=== PATIENT | male | born 1965 ===

== ENCOUNTER → 2017-03-05 | Day surgery (SDC) | payer OTHER ==
[2017-02-26 10:46] VITALS: Ht 165.1 cm; Wt 76.4 kg
[~2017-03-05] VITALS: Ht 165.1 cm; Wt 76.4 kg
[~2017-03-05] MED LIST: ATROPINE SULFATE 0.1 MG/ML 5ML SYR IV PRN; CEFAZOLIN 1000MG/55 ML D5W IV SCH; CEFAZOLIN SOD 1000MG/55 ML D5W IV SCH; DEXAMETHASONE SOD INJ 4 MG/ML VIAL ONE; EpHEDrine SULFATE INJ 50 MG/ML AMP IV PRN; EpINEphrine HCL INJ 1 MG/ML 5ML SYRINGE ONE; EpINEphrine INJ 1MG/ML AMP 1 MG/ML AMP ONE; FENTANYL CITRATE INJ 50 MCG/1 ML 2 ML VIAL ONE; HYDROmorphone INJ 1 MG/ML SYR IV PRN; KETO10TA PO; KETOROLAC TROMETHAMINE 30 MG/ML VIAL ONE; LACTATED RINGER'S 1000ML 1,000 ML IV SCH; LIDOCAINE HCL 2% 2 ML VIAL (20MG/ML) ONE; MIDAZOLAM HCL 1 MG/ML 2ML VIAL ONE; ONDANSETRON INJ 2 MG/ML 2 ML VIAL IV PRN; ONDANSETRON INJ 2 MG/ML 2 ML VIAL ONE; OXYC-57 PO; OXYCODONE/ACETAMINOPHEN 5-325 TAB PO PRN; PROPOFOL IV EMULSION 10 MG/ML 20 ML VIAL IV ONE; ROPIVACAINE 0.5% 5 MG/ML 30 ML VIAL ONE; SODIUM CHLORIDE 0.9% 1000ML 1,000 ML IV SCH
--- NOTE | 2017-03-05 06:56 | History & Physical Bridge - [place] ---
H&P Re-Evaluation Bridge Note: I have examined the patient, reviewed the History & Physical and in the interval since the performance of the History & Physical I have noted the following changes of clinical significance: No changes noted
--- NOTE | 2017-03-05 08:23 | Anesthesia Progress Nt - [facility] ---
Anesthesia Post Op Note Date & Time Mar 05, 2017 at 08:23 Vital Signs Pain Intensity: 0 Vital Signs Past 12 Hours Date Time Temp Pulse Resp B/P (MAP) Pulse Ox O2 Delivery O2 Flow Rate FiO2 03/05/17 07:27 66 03/05/17 07:27 67 11 100 03/05/17 07:26 131/84 03/05/17 07:22 69 03/05/17 07:22 69 17 99 03/05/17 07:21 139/84 03/05/17 07:17 73 03/05/17 07:17 74 18 99 03/05/17 07:16 132/87 03/05/17 07:15 73 03/05/17 07:15 73 18 99 03/05/17 07:12 136/85 03/05/17 07:10 72 23 99 03/05/17 07:10 70 03/05/17 07:05 73 0 98 03/05/17 07:05 73 03/05/17 06:25 36.5 65 16 144/85 (104) 100 Room Air Notes Mental Status: alert / awake / arousable, participated in evaluation Pt Amnestic to Procedure: Yes Nausea / Vomiting: adequately controlled Pain: adequately controlled Airway Patency, RR, SpO2: stable & adequate BP & HR: stable & adequate Hydration State: stable & adequate Anesthetic Complications: no major complications apparent
--- NOTE | 2017-03-05 09:20 | Discharge Instructions-SurgCtr ---
Discharge Instructions Date of Service Mar 05, 2017. Visit Reason for Visit: Left Knee Acl Rupture, Medial & Lateral Meniscus Discharge Discharge Diagnosis / Problem: left ACL tear, medial and lateral meniscus tear Discharge Goals Goal(s): Decrease discomfort, Improve function, Therapeutic intervention Activity Recommendations Activity Limitations: per Instructions/Follow-up section Weightbearing Status: Left weightbearing (as tolerated with brace ) Anesthesia . Post Anesthesia Instructions: If you have had General Anesthesia or IV Sedation: * Do not drive today. * Resume driving when surgeon permits. * Do not make important decisions or sign legal documents today. * Call surgeon for: 1. Temperature elevations greater than 101 degrees F. 2. Uncontrollable pain. 3. Excessive bleeding. 4. Persistent nausea and vomiting. 5. Medication intolerance (nausea, vomiting or rash). * For nausea and vomiting use only clear liquids such as: tea, soda, bouillon until nausea subsides, then gradually increase diet as tolerated. * If you have any concerns or questions, call your surgeon's office. If physician is unavailable and it is an emergency, call 911 or go to the nearest emergency room. . Instructions / Follow-Up Instructions / Follow-Up MEDICATIONS: * Resume previous medications unless instructed otherwise by your surgeon. * Always take pain medication on a full stomach or with food to avoid upset stomach. * Do not drink alcohol or drive while taking narcotics. * Ibuprofen or Tylenol may be taken if narcotic not needed. no ibuprofen while taking toradol SPECIAL CARE INSTRUCTIONS: __ None _x_ Keep extremity elevated and iced x 48 hours; apply ice 20-30 minutes 8-10 times/day. May remove at night. _x_ Crutches __ May discard when able _x_ Brace for weightbearing (remove for therapy exercises) __ 24 hrs/day __ Remove at night _x_ Dressing __ Maintain until seen in office, may shower with plastic over site _x_ Remove dressings in 24-48 hours and then may shower _x_ Cover incisions with band-aids after showering _x_ Do not remove steri-strips Call physician if chills or temperature rises above 102 degrees or pain unrelieved by prescribed pain medications. Office [phone] follow up in 2 weeks Diet Recommendations Home Diet: resume previous diet Procedures Procedures Performed: Left Knee Arthroscopic Anterior Cruciate Ligament Reconstruction, Hamstring Autograft, Possible Partial Medial Meniscectomy, Partial Lateral Menisectomy, Chondroplasty Pending Studies Studies pending at discharge: no Medical Emergencies . Who to Call and When: Medical Emergencies: If at any time you feel your situation is an emergency, please call 911 immediately. . Non-Emergent Contact Non-Emergency issues call your: Surgeon . . "Provider Documentation" section prepared by Luis E Lazaro. .
--- NOTE | 2017-03-05 09:21 | [facility] Post Operative Brief Note ---
Immediate Operative Summary Operative Date Mar 05, 2017. Pre-Operative Diagnosis Left Knee Anterior Cruciate ligament rupture, Medial and Lateral Meniscus + DJD Post-Operative Diagnosis same as preop Procedure(s) Performed Left Knee Arthroscopic Anterior Cruciate Ligament Reconstruction, Hamstring Autograft, Possible Partial Medial Meniscectomy, Partial Lateral Menisectomy, Chondroplasty Surgeon Dr. Canela Housing Assistant Surgeon(s) LEANNA Jenkins Estimated Blood Loss minimal Findings ACL Tear Medial Meniscus Tear Lateral Meniscus Tear DJD Specimens none per surgeon Anesthesia General Complication(s) None Disposition Recovery Room / PACU
--- NOTE | 2017-03-05 09:51 | Anesthesia Progress Nt - [facility] ---
Anesthesia Post Op Note Date & Time Mar 05, 2017 at 09:51 Vital Signs Pain Intensity: 0 Vital Signs Past 12 Hours Date Time Temp Pulse Resp B/P (MAP) Pulse Ox O2 Delivery O2 Flow Rate FiO2 03/05/17 09:21 36.6 99 12 155/113 100 Mask 6 03/05/17 07:27 66 03/05/17 07:27 67 11 100 03/05/17 07:26 131/84 03/05/17 07:22 69 03/05/17 07:22 69 17 99 03/05/17 07:21 139/84 03/05/17 07:17 73 03/05/17 07:17 74 18 99 03/05/17 07:16 132/87 03/05/17 07:15 73 03/05/17 07:15 73 18 99 03/05/17 07:12 136/85 03/05/17 07:10 72 23 99 03/05/17 07:10 70 03/05/17 07:05 73 0 98 03/05/17 07:05 73 03/05/17 06:25 36.5 65 16 144/85 (104) 100 Room Air Notes Mental Status: alert / awake / arousable, participated in evaluation Pt Amnestic to Procedure: Yes Nausea / Vomiting: adequately controlled Pain: adequately controlled Airway Patency, RR, SpO2: stable & adequate BP & HR: stable & adequate Hydration State: stable & adequate Anesthetic Complications: no major complications apparent
[2017-03-05] MEDS: FENTANYL CITRATE INJ 50 MCG/1 ML 2 ML VIAL IV PRN ×4 (10:08→10:24)
[2017-03-05 11:17] VITALS: BP 130/80; PULSE 86; TEMP 37; O2SAT 96
--- NOTE | 2017-03-05 23:31 | OPERATIVE REPORT ---
DATE OF OPERATION: 03/05/2017 SURGEON: Geoffrey Canela MD MANAGER ASSISTED LIVING: BRANDIE Lawrence PREOPERATIVE DIAGNOSES: 1. Left anterior cruciate ligament tear. 2. Left knee medial meniscus tear. 3. Left knee lateral meniscus tear. POSTOPERATIVE DIAGNOSES: 1. Left knee anterior cruciate ligament tear. 2. Left knee medial meniscus tear. 3. Left knee lateral meniscus tear. 4. 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 PROCEDURES PERFORMED: 1. Left knee exam under anesthesia. 2. Left knee diagnostic arthroscopy. 3. Left knee ACL reconstruction with a 7/7.5 mm semitendinosis/gracilis autograft. 4. Left knee partial medial meniscectomy. 5. Left knee partial lateral meniscectomy. 6. Left knee chondroplasty of the patella. COMPLICATIONS: None. ESTIMATED BLOOD LOSS: Minimal. TOURNIQUET TIME: 66 minutes at 300 mmHg. ANESTHESIA: General with adductor canal block. DRAINS: None. SPECIMENS: None. OPERATIVE INDICATIONS: The patient is a 51-year-old fairly active gentleman who sustained a work-related injury about 2 months ago. He sustained a fall about 10 feet. He was seen and diagnosed with an ACL tear which was confirmed by MRI. He had restored his range of motion. He also had medial and lateral meniscus tears based on the MRI. The patient elected to proceed with operative treatment. He has fairly minimal arthritic change radiographically. OPERATIVE FINDINGS: Examination under anesthesia of left knee revealed just a small knee effusion. Range of motion was full extension to 135+ degrees of flexion. He had a positive Rosario, grade 2 pivot, negative anterior drawer, and negative posterior drawer. No varus or valgus instability. There is no posterolateral rotatory instability. Brunilda's is negative for mechanical symptoms. ARTHROSCOPIC FINDINGS: Arthroscopic findings revealed a complete ACL tear. The ACL was torn off the femur and lying down and scarred to the PCL. He had medial and lateral meniscus tears. He did have some grade 2 changes of the undersurface of the patella. The remainder of his cartilage was pretty well preserved with diffuse grade 1 changes. OPERATIVE PROCEDURE: The patient taken to the operating room, identified and placed on the operating table in supine position. All contact areas were appropriately padded. IV antibiotics were provided by anesthesia team. An adductor canal block had been provided in the holding area. A general anesthetic was implemented by anesthesia team. A left thigh tourniquet was then placed. The left knee was then examined under anesthesia with findings as described above. The left leg was then prepped and draped in the usual sterile fashion. The left leg was elevated and exsanguinated with Esmarch and tourniquet was placed at 300 mmHg. About a 4 cm incision was made directly over the pes tendons. Sharp dissection was carried through the subcutaneous tissue down to the level of the sartorius fascia. The subcutaneous tissue was mobilized circumferentially. An oblique incision was made in the sartorius fascia just above the hamstring tendons. The hamstring tendons were then taken sharply off the anterior face of the tibia. Each tendon was isolated separately and #2 TiCron whipstitch was suspended placed in the end of each tendon. Each tendon was then harvested with a closed end tendon stripper and taken to the back table and cut to 21 cm in length. The muscle was stripped off the opposite end of the tendon. A similar #2 TiCron whipstitch was placed in the opposite end of the tendon. The tendons were then folded over. They fit to a size 7 tunnel on the femoral side and a 7.5 on the tibial side. The tendons were then placed on the graft board and 10 pounds of tension were applied until ready for implantation. During graft preparation, routine left knee arthroscopy was then performed through typical anteromedial and anterolateral portals. Supralateral outflow portal was established for outflow. The remnant of the ACL was excised. A moderate notchplasty was performed. Attention was then drawn meniscus. With the use of motorized and hand controlled instruments, a partial medial and lateral menisci were resected. He had a very complex tear of the posterior horn of the lateral meniscus with a tear in 2 separate spots. This is in the white-white zone and both of these were excised leaving the largest portion of the peripheral rim possible remaining. Attention was then drawn medially. With the use of motorized and hand controlled instruments, a partial medial meniscectomy was then performed. I resected this back to stable tissue. Once this was complete, attention was then drawn to the ACL reconstruction. With the use the tibial guide set at 50 degrees, a guidewire was placed in the area of the proposed tibial tunnel. It was then over overreamed with a 7.5 mm solid reamer. The tunnel was cleaned of all debris. A 6 mm over the top guide was then placed in the anteromedial portal. The knee was maximally flexed. A guidewire was placed in the area of proposed femoral tunnel. It was overdrilled with a 4.5 mm Endobutton drill bit. The final tunnel length measured 35 mm in length. A 15 mm closed loop Endobutton was selected. The tunnel was cleaned of all debris. The graft was then looped over the closed loop Endobutton. A Beath pin was then used to pass the graft through the tibial tunnel up into the femoral tunnel. The Endobutton was flipped. The knee was cycled multiple problems. He was brought out into full extension and there was no impingement. The graft was then tensioned with the knee in full extension. Attention was applied and the distal fixation was performed using the Intrafix tensioner at 20 pounds. The tunnel was dilated. Small Biocryl sheath was placed followed by a 6.8 Biocryl screw. The knee was then examined and there was no Rosario shift at all and no pivot shift. The scope was placed back in the knee joint and the graft was appropriately tensioned in both flexion and extension. There was no impingement. The shaver was then used to debride the knee of all extraneous debris. The arthroscopic instruments were then removed from the joint. The portals were closed with 3-0 Prolene suture in a simple fashion. The knee was then injected with 30 mL of 0.5% ropivacaine with epinephrine and 30 mg of Toradol. The tourniquet was then let down for a tourniquet time of 66 minutes. Hemostasis was assured with use of electrocautery. The anteromedial wound was then irrigated. The subcutaneous tissues were closed with 2-0 Dexon suture in a buried interrupted fashion. Skin was closed with 3-0 Prolene suture in a subcuticular fashion. The leg was then cleaned and dried and a sterile dressing of Xeroform, 4 x 4, sterile cast padding, Thomas bandage, cold pack and knee immobilizer applied. The patient was then brought out of general anesthesia and transferred to the recovery room in stable condition. The patient tolerated with no complications. All needle and sponge counts were correct at the end of the operation. I attest to the content of the Intraoperative Record and any orders documented therein. Any exceptions are noted below. MTDD
== END | disposition home or self-care (01) ==
LOC: X.SURG 06:19
PROVIDERS: ATTEND Orthopaedic Surgery Sports Medicine
DX: S83.512A Sprain of anterior cruciate ligament of left knee, initial encounter (principal); S83.282A Other tear of lateral meniscus, current injury, left knee, initial encounter; S83.242A Other tear of medial meniscus, current injury, left knee, initial encounter; W17.89XA Other fall from one level to another, initial encounter; Y99.0 Civilian activity done for income or pay